=== PATIENT | female | born 1985 | race Caucasian/White ===

== ENCOUNTER 2018-11-24 23:37 | Emergency (ER) | payer OTHER ==
[2018-11-25] MEDS ORDERED: Phenazopyridine 200 MG Tab PO ONE (00:01)
--- NOTE | 2018-11-25 00:01 | EDM.PDOC ---
ED HPI GENERAL MEDICAL PROBLEM - General Chief Complaint: Genitourinary Problem Stated Complaint: PT HAS UTI Time Seen by Provider: 11/24/18 23:57 - History of Present Illness INITIAL COMMENTS - FREE TEXT/NARRATIVE: HISTORY AND PHYSICAL: History of present illness: Patient 33-year-old female presents with concern of dysuria she states she's had discomfort with urination 1 day had some frequency denies back pain nausea vomiting fever chills or other complaints Review of systems: As per history of present illness and below otherwise all systems reviewed and negative. Past medical history: As per history of present illness and as reviewed below otherwise noncontributory. Surgical history: As per history of present illness and as reviewed below otherwise noncontributory. Social history: No reported history of drug or alcohol abuse. Family history: As per history of present illness and as reviewed below otherwise noncontributory. Physical exam: HEENT: Atraumatic, normocephalic, pupils reactive, negative for conjunctival pallor or scleral icterus, mucous membranes moist, throat clear, neck supple, nontender, trachea midline. Lungs: Clear to auscultation, breath sounds equal bilaterally, chest nontender. Heart: S1S2, regular, negative for clicks, rubs, or JVD. Abdomen: Soft, nondistended, nontender. Negative for masses or hepatosplenomegaly. Negative for costovertebral tenderness. Pelvis: Stable nontender. Genitourinary: Deferred. Rectal: Deferred. Extremities: Atraumatic, negative for cords or calf pain. Neurovascular unremarkable. Neuro: Awake, alert, oriented. Cranial nerves II through XII unremarkable. Cerebellum unremarkable. Motor and sensory unremarkable throughout. Exam nonfocal. Diagnostics: UA with reflex microculture Therapeutics: None Impression: #1 UTI Definitive disposition and diagnosis as appropriate pending reevaluation and review of above. Lower Pelvic Pain Score (Numeric/FACES): 10 - Related Data Allergies Allergy/AdvReac Type Severity Reaction Status Date / Time doxycycline Allergy Rash Verified 11/24/18 23:48 Home Meds: Home Meds . [No Known Home Meds] 11/24/18 [History] Past Medical History - Past Health History Medical/Surgical History: Denies Medical/Surgical History - Infectious Disease History Infectious Disease History: Reports: None Social & Family History - Family History Family Medical History: Noncontributory - Tobacco Use Smoking Status *Q: Never Smoker Second Hand Smoke Exposure: No - Caffeine Use Caffeine Use: Reports: Coffee - Recreational Drug Use Recreational Drug Use: No ED ROS GENERAL - Review of Systems Review Of Systems: ROS reveals no pertinent complaints other than HPI. ED EXAM, GENERAL - Physical Exam Exam: See Below (See dictation) Course - Vital Signs Last Recorded V/S: Last Vital Signs Temp 36.9 C 11/24/18 23:49 Pulse 101 H 11/24/18 23:49 Resp 16 11/24/18 23:49 BP 130/88 11/24/18 23:49 Pulse Ox 99 11/24/18 23:49 - Orders/Labs/Meds Orders: Active Orders 24 hr Category Date Time Status CULTURE URINE [RM] Stat Lab 11/24/18 23:43 Received Labs: Laboratory Tests 11/24/18 Range/Units 23:43 Urine Color YELLOW Urine Appearance HAZY Urine pH 6.5 (5.0-8.0) Ur Specific [place] <= 1.005 (1.001-1.035) Urine Protein 100 H (NEGATIVE) mg/dL Urine Glucose (UA) NEGATIVE (NEGATIVE) mg/dL Urine Ketones NEGATIVE (NEGATIVE) mg/dL Urine Occult Blood LARGE H (NEGATIVE) Urine Nitrite NEGATIVE (NEGATIVE) Urine Bilirubin NEGATIVE (NEGATIVE) Urine Urobilinogen 0.2 (<2.0) EU/dL Ur Leukocyte Esterase LARGE H (NEGATIVE) Urine RBC 20-25 (0-2/HPF) Urine WBC >100 (0-5/HPF) Ur Epithelial Cells FEW (NONE-FEW) Urine Bacteria FEW (NEGATIVE) Departure - Departure Time of Disposition: 00:00 Disposition: Home, Self-Care 01 Condition: Good Clinical Impression: UTI, Urinary tract infectious disease - Discharge Information Referrals: PCP,None [Primary Care Provider] - Additional Instructions: The following information is given to patients seen in the emergency department who are being discharged to home. This information is to outline your options for follow-up care. We provide all patients seen in our emergency department with a follow-up referral. The need for follow-up, as well as the timing and circumstances, are variable depending upon the specifics of your emergency department visit. If you don't have a primary care physician on staff, we will provide you with a referral. We always advise you to contact your personal physician following an emergency department visit to inform them of the circumstance of the visit and for follow-up with them and/or the need for any referrals to a consulting specialist. The emergency department will also refer you to a specialist when appropriate. This referral assures that you have the opportunity for followup care with a specialist. All of these measure are taken in an effort to provide you with optimal care, which includes your followup. Under all circumstances we always encourage you to contact your private physician who remains a resource for coordinating your care. When calling for followup care, please make the office aware that this follow-up is from your recent emergency room visit. If for any reason you are refused follow-up, please contact the [facility] emergency department at and asked to speak to the emergency department charge nurse. Bactrim Pyridium as prescribed follow-up private medical doctor return as needed as discussed
== END 2018-11-25 00:14 | disposition home or self-care (01) ==
LOC: MW.ED 23:37
DX: N39.0 Urinary tract infection, site not specified (principal); Z88.1 Allergy status to other antibiotic agents
CPT/HCPCS: 81001; 87086; 87088; 87186; 99284; A9270

== ENCOUNTER 2018-12-02 11:01 | Emergency (ER) | payer OTHER ==
[2018-12-02] MEDS ORDERED: Famotidine 20 MG/2 ML SDV IVPUSH ONE (11:22)
[2018-12-02] MEDS ORDERED: Sodium Chloride 0.9% 10 ML Syringe FLUSH PRN (11:22)
[2018-12-02] MEDS ORDERED: hydrOXYzine Pamoate 25 MG Cap PO ONE (11:22)
[2018-12-02] MEDS ORDERED: methylPREDNISolone Sodium Succinate 125 MG/2 ML SDV IVPUSH ONE (11:22)
[2018-12-02] MEDS ORDERED: Sodium Chloride 0.9% 2.5 ML Syringe FLUSH PRN (11:22)
[2018-12-02] MEDS ORDERED: Sodium Chloride 0.9% 1,000 ML IV ONE (11:22)
--- NOTE | 2018-12-02 11:28 | EDM.PDOC ---
ED HPI GENERAL MEDICAL PROBLEM - General Chief Complaint: Allergic Reaction Stated Complaint: RASH Time Seen by Provider: 12/02/18 11:09 - History of Present Illness INITIAL COMMENTS - FREE TEXT/NARRATIVE: HISTORY AND PHYSICAL: History of present illness: The patient is a 33-year-old female with no significant past medical history who was seen her on November 24 for UTI symptoms and had a UA and urine culture and was started on Bactrim. Her urine culture came back and is sensitive to all antibiotics and she has taken the Bactrim until yesterday when she broke out in a diffuse body rash which is itchy. The patient says she did not take the last dose of the Bactrim and she has been taking Benadryl for several doses as well as Benadryl cream and oatmeal baths and is still very itchy. She says that overall she has felt poorly over the last 1 week having fevers up to 102 and feeling run down and having body aches. The patient says she has been trying to hydrate and has no abdominal pain no vomiting no diarrhea no chest pain or shortness of breath. She says she thinks she has a sinus infection and she feels pressure but she has not had significant nasal drainage. She did not get her flu shot this year. Her is ill with an upper respiratory tract infection. The patient says her urinary complaints have significantly improved and she no longer has them. She is concerned not only about the rash but the fact that she has been feeling rundown and had fevers over the last 1 week. She is not sure if it was from the UTI or she has a second process going on. She also noticed some swollen glands in her neck bilaterally. Review of systems: As per history of present illness and below otherwise all systems reviewed and negative. Past medical history: As per history of present illness and as reviewed below otherwise noncontributory. Surgical history: As per history of present illness and as reviewed below otherwise noncontributory. Social history: No reported history of drug or alcohol abuse. Family history: As per history of present illness and as reviewed below otherwise noncontributory. Physical exam: General: Well-developed well-nourished thin female who is nontoxic and vital signs were noted by me. The patient is not hoarse or muffled in her voice and she is not breathless HEENT: Atraumatic, normocephalic, pupils reactive, negative for conjunctival pallor or scleral icterus, mucous membranes moist, throat clearof exudates but there is posterior oropharyngeal erythema , neck supple, nontender, trachea midline. There is some small lymph nodes in chains noted bilaterally more prominent on the right side with some mild tenderness with palpation but no posterior adenopathy and no nuchal rigidity. Lungs: Clear to auscultation, breath sounds equal bilaterally, chest nontender. Heart: S1S2, regular rate and rhythm no overt murmurs Abdomen: Soft, nondistended, nontender. NABS. Negative for costovertebral tenderness. Pelvis: Deferred Genitourinary: Deferred. Rectal: Deferred. Extremities: Atraumatic, full range of motion without defects or deficits. Neurovascular unremarkable. Neuro: Awake, alert, oriented. Cranial nerves II through XII unremarkable. Cerebellum unremarkable. Motor and sensory unremarkable throughout. Exam nonfocal. Skin: There is a diffuse maculopapular erythematous rash consistent with a drug rash seen diffusely on the body including the face. Turgor is normal. There is no oropharyngeal, tongue or lip swelling Diagnostics: CBC CMP flu swab strep UA Therapeutics: IV fluids Solu-Medrol Vistaril Rash is improving and is less red and beefy with the patient says she still feels somewhat itchy. I discussed with her testing results and care plan for home. She is aware that her WBC count is on the lower side and she will need to have that followed up. I will give her prednisone and Vistaril for home and also advised to continue [id number] meds as she chooses. We did treatment -1 dose for the UTI and her urine today is within normal limits I will not re- dose her. I simply advised her to monitor her symptoms and is to return to the ED Impression: Drug reaction/ allergic reaction to Bactrim, body aches and malaise with fevers , leukopenia Definitive disposition and diagnosis as appropriate pending reevaluation and review of above. - Related Data Allergies Allergy/AdvReac Type Severity Reaction Status Date / Time doxycycline Allergy Rash Verified 11/24/18 23:48 Sulfa (Sulfonamide Allergy Rash Verified 12/02/18 11:13 Antibiotics) Home Meds: Home Meds . [No Known Home Meds] 11/24/18 [History] Past Medical History - Past Health History Medical/Surgical History: Denies Medical/Surgical History - Infectious Disease History Infectious Disease History: Reports: None Social & Family History - Family History Family Medical History: Noncontributory - Tobacco Use Smoking Status *Q: Never Smoker - Caffeine Use Caffeine Use: Reports: Coffee - Recreational Drug Use Recreational Drug Use: No ED ROS ALLERGIC REACTION - Review of Systems Review Of Systems: ROS reveals no pertinent complaints other than HPI. ED EXAM GENERAL NO PERIP PULSE - Physical Exam Exam: See Below (see dictation) Course - Vital Signs Last Recorded V/S: Last Vital Signs Temp 36.4 C 12/02/18 11:10 Pulse 99 12/02/18 11:10 Resp 18 12/02/18 11:10 BP 125/78 12/02/18 11:10 Pulse Ox 96 12/02/18 11:10 - Orders/Labs/Meds Orders: Active Orders 24 hr Category Date Time Status COMPREHENSIVE METABOLIC PN,CMP [CHEM] Stat Lab 12/02/18 11:35 Received CULTURE STREP A CONFIRMATION [] Stat Lab 12/02/18 11:22 Results STREP SCRN A RAPID W CULT CONF [RM] Stat Lab 12/02/18 11:22 Results Sodium Chloride 0.9% [Saline Flush] Med 12/02/18 11:22 Active 10 ml FLUSH ASDIRECTED PRN Sodium Chloride 0.9% [Saline Flush] Med 12/02/18 11:22 Active 2.5 ml FLUSH ASDIRECTED PRN Saline Lock Insert [OM.PC] Stat Oth 12/02/18 11:21 Ordered Medication Orders Sodium Chloride (Saline Flush) 10 ml FLUSH ASDIRECTED PRN PRN Reason: Keep Vein Open Last Admin: 12/02/18 11:37 Dose: 10 ml Sodium Chloride (Saline Flush) 2.5 ml FLUSH ASDIRECTED PRN PRN Reason: Keep Vein Open Last Admin: 12/02/18 11:37 Dose: 2.5 ml Labs: Laboratory Tests 12/02/18 12/02/18 12/02/18 Range/Units 11:35 11:35 11:50 WBC 2.99 L (4.0-11.0) K/uL RBC 4.13 L (4.30-5.90) M/uL Hgb 12.7 (12.0-16.0) g/dL Hct 38.1 (36.0-46.0) % MCV 92.3 (80.0-98.0) fL MCH 30.8 (27.0-32.0) pg MCHC 33.3 (31.0-37.0) g/dL RDW Std Deviation 43.5 (28.0-62.0) fl RDW Coeff of José Miguel 13 (11.0-15.0) % Plt Count 165 (150-400) K/uL MPV 11.30 (7.40-12.00) fL Neut % (Auto) 57.5 (48.0-80.0) % Lymph % (Auto) 25.4 (16.0-40.0) % [place] % (Auto) 9.4 (0.0-15.0) % Eos % (Auto) 6.4 (0.0-7.0) % Baso % (Auto) 1.3 (0.0-1.5) % Neut # (Auto) 1.7 (1.4-5.7) K/uL Lymph # (Auto) 0.8 (0.6-2.4) K/uL [place] # (Auto) 0.3 (0.0-0.8) K/uL Eos # (Auto) 0.2 (0.0-0.7) K/uL Baso # (Auto) 0.0 (0.0-0.1) K/uL Nucleated RBC % 0.0 /100WBC Nucleated RBCs # 0 K/uL Urine Color YELLOW Urine Appearance CLEAR Urine pH 6.0 (5.0-8.0) Ur Specific [place] 1.010 (1.001-1.035) Urine Protein NEGATIVE (NEGATIVE) mg/dL Urine Glucose (UA) NEGATIVE (NEGATIVE) mg/dL Urine Ketones NEGATIVE (NEGATIVE) mg/dL Urine Occult Blood TRACE-LYSED H (NEGATIVE) Urine Nitrite NEGATIVE (NEGATIVE) Urine Bilirubin NEGATIVE (NEGATIVE) Urine Urobilinogen 0.2 (<2.0) EU/dL Ur Leukocyte Esterase NEGATIVE (NEGATIVE) Urine RBC 0-2 (0-2/HPF) Urine WBC 0-2 (0-5/HPF) Ur Epithelial Cells MODERATE (NONE-FEW) Urine Bacteria FEW (NEGATIVE) Monoscreen NEGATIVE (NEG) Meds: Medications Generic Name Dose Route Start Last Admin Trade Name Freq PRN Reason Stop Dose Admin Sodium Chloride 10 ml 12/02/18 11:22 12/02/18 11:37 Saline Flush FLUSH 10 ml ASDIRECTED PRN Administration Keep Vein Open Sodium Chloride 2.5 ml 12/02/18 11:22 12/02/18 11:37 Saline Flush FLUSH 2.5 ml ASDIRECTED PRN Administration Keep Vein Open Discontinued Medications Generic Name Dose Route Start Last Admin Trade Name [place] PRN Reason Stop Dose Admin Famotidine 20 mg 12/02/18 11:22 12/02/18 11:37 Pepcid IVPUSH 12/02/18 11:23 20 mg ONETIME ONE Administration Hydroxyzine Pamoate 25 mg 12/02/18 11:22 12/02/18 11:37 Vistaril PO 12/02/18 11:23 25 mg ONETIME ONE Administration Sodium Chloride 1,000 mls @ 999 mls/hr 12/02/18 11:22 12/02/18 11:35 Normal Saline IV 12/02/18 12:22 999 mls/hr STAT ONE Administration Methylprednisolone Sodium Succinate 125 mg 12/02/18 11:22 12/02/18 11:37 Solu-Medrol IVPUSH 12/02/18 11:23 125 mg ONETIME ONE Administration Departure - Departure Time of Disposition: 13:29 Disposition: Home, Self-Care 01 Condition: Good Clinical Impression: Allergic drug reaction Qualifiers: Encounter type: initial encounter Qualified Code(s): T78.40XA - Allergy, unspecified, initial encounter Leukopenia Qualifiers: Leukopenia type: unspecified Qualified Code(s): D72.819 - Decreased white blood cell count, unspecified - Discharge Information Referrals: PCP,Unknown [Primary Care Provider] - - My Orders Last 24 Hours: My Active Orders 12/02/18 11:21 Saline Lock Insert [OM.PC] Stat 12/02/18 11:22 CULTURE STREP A CONFIRMATION [RM] Stat STREP SCRN A RAPID W CULT CONF [RM] Stat Sodium Chloride 0.9% [Saline Flush] 10 ml FLUSH ASDIRECTED PRN Sodium Chloride 0.9% [Saline Flush] 2.5 ml FLUSH ASDIRECTED PRN 12/02/18 11:35 COMPREHENSIVE METABOLIC PN,CMP [CHEM] Stat - Assessment/Plan Last 24 Hours: My Active Orders 12/02/18 11:21 Saline Lock Insert [OM.PC] Stat 12/02/18 11:22 CULTURE STREP A CONFIRMATION [RM] Stat STREP SCRN A RAPID W CULT CONF [RM] Stat Sodium Chloride 0.9% [Saline Flush] 10 ml FLUSH ASDIRECTED PRN Sodium Chloride 0.9% [Saline Flush] 2.5 ml FLUSH ASDIRECTED PRN 12/02/18 11:35 COMPREHENSIVE METABOLIC PN,CMP [CHEM] Stat
[2018-12-02 13:48] LABS: CHLORIDE,CL 105 mmol/L (98-107); SODIUM,NA 140 mmol/L (136-145)
== END 2018-12-02 13:55 | disposition home or self-care (01) ==
LOC: MW.ED 11:01
DX: D72.819 Decreased white blood cell count, unspecified (principal); T37.0X5A Adverse effect of sulfonamides, initial encounter; R51 Headache; R53.81 Other malaise; Z88.1 Allergy status to other antibiotic agents; Z88.2 Allergy status to sulfonamides
CPT/HCPCS: 80053; 81001; 85025; 86308; 87081; 87804; 87880; 96361; 96374; 96375; 99283; A9270; J2930; J3490; J7040

== ENCOUNTER 2023-04-23 10:23 | Emergency (ER) | payer BC, OTHER ==
[2023-04-23] MEDS ORDERED: Triamcinolone Acetonide 40 MG/ML 1 ML SDV INJECT STA (11:19)
== END 2023-04-23 12:09 | disposition home or self-care (01) ==
LOC: MW.ED 10:23
DX: J36 Peritonsillar abscess (principal); Z88.1 Allergy status to other antibiotic agents
CPT/HCPCS: 87651; 96372; 99283; J3301

== ENCOUNTER 2023-04-24 15:50 | Emergency (ER) | payer BC ==
[2023-04-24] MEDS ORDERED: Sodium Chloride 0.9% 2.5 ML Syringe FLUSH PRN (16:07)
[2023-04-24] MEDS ORDERED: Sodium Chloride 0.9% 10 ML Syringe FLUSH PRN (16:07)
[2023-04-24] MEDS ORDERED: Sodium Chloride 0.9% 1,000 ML IV STA ×2 (16:07→17:47)
[2023-04-24] MEDS ORDERED: Ondansetron 4 MG/2 ML SDV IVPUSH STA (16:07)
[2023-04-24 16:41] LABS: BASOPHILS PERCENT AUTO 0.2 % (0.0-1.5); EOSINOPHILS PERCENT AUTO 0.2 % (0.0-7.0); HEMATOCRIT 36.5 % (36.0-46.0); HEMOGLOBIN 11.7 g/dL (12.0-16.0); LYMPHOCYTES ABSOLUTE AUTO 1.1 K/uL (0.6-2.4); LYMPHOCYTES PERCENT AUTO 10.7 % (16.0-40.0); MEAN CORPUSCULAR HEMOGLOBIN 28.6 pg (27.0-32.0); MEAN CORPUSCULAR HGB CONC 32.1 g/dL (31.0-37.0); MEAN CORPUSCULAR VOLUME 89.2 fL (80.0-98.0); MONOCYTES ABSOLUTE AUTO 0.6 K/uL (0.0-0.8); MONOCYTES PERCENT AUTO 5.7 % (0.0-15.0); NEUTROPHILS ABSOLUTE AUTO 8.7 K/uL (1.4-5.7); NEUTROPHILS PERCENT AUTO 83.2 % (48.0-80.0); NRBC ABSOLUTE 0 K/uL; PLATELET COUNT,PLT 302 K/uL (150-400); RED BLOOD CELL COUNT 4.09 M/uL (4.30-5.90); WHITE BLOOD CELL COUNT,WBC 10.43 K/uL (4.0-11.0)
[2023-04-24 17:18] LABS: A/G RATIO 0.9 (0.9-1.6); ALBUMIN 3.6 g/dL (3.4-5.0); BILIRUBIN TOTAL 0.4 mg/dL (0.2-1.0); CARBON DIOXIDE,CO2 24.2 mmol/L (21.0-32.0); CREATININE 0.7 mg/dL (0.6-1.0); EST CRCL DRUG DOSING (CG) 116.68 mL/min; POTASSIUM,K 4.1 mmol/L (3.5-5.1); PROTEIN TOTAL,TP 7.8 g/dL (6.4-8.2)
[2023-04-24] MEDS ORDERED: Promethazine 25 MG/ML SDV IM STA (17:47)
[2023-04-24] MEDS ORDERED: Acetaminophen/oxyCODONE 325-5 MG Tab PO STA (17:47)
[2023-04-24] MEDS ORDERED: Iopamidol 755 Mg/ML 100 ML Bottle IVPUSH ONE (19:10)
[2023-04-24] MEDS ORDERED: Midazolam 1 MG/ML 2 ML SDV IVPUSH ONE (20:15)
[2023-04-24] MEDS ORDERED: cefTRIAXone 2 GM in Sodium Chloride 0.9% 50 ML IV ONE (20:15)
[2023-04-24] MEDS ORDERED: Dexamethasone 10 MG/ML SDV IVPUSH ONE (20:15)
== END 2023-04-24 21:01 | disposition home or self-care (01) ==
LOC: MW.ED 15:50
DX: J36 Peritonsillar abscess (principal)
CPT/HCPCS: 36415; 42700; 70491; 80053; 83605; 85025; 86308; 96361; 96365; 96372; 96375; 99284; A9270; J0696; J1100; J2250; J2405; J2550; J3490; J7030; Q9967